=== PATIENT | male | born 1975 | race Caucasian/White ===

== ENCOUNTER 2018-01-12 14:30 | Outpatient (RCR) | payer OTHER, SELFPAY ==
--- NOTE | 2017-12-22 08:30 | PTTR_ITS ---
DATE: 12/22/17 SUBJECTIVE: Pt reporting that he has had a rough week with the tingling in his hands. He had some pretty hard tingling through his thumb and first and second digit of the (L) arm and hand. He is not sure if he is responding well to the dry needling last time and he has had increased pain since then. He is frustrated with his progress. OBJECTIVE: Manual therapy: ([id number]). Performed deep tissue mobilization techniques to the upper trap, levator and thoracic paraspinals on the (L). I clear out trigger point sin the levator attachment. In supine performed trigger point release to the upper traps and deep tissue work through the scalenes, SCM and pec minor. Post tissue work pt notes improvement in his tingling and he is then seen by primary PT Dominic Senior please refer to his note for specifics. * X Ultrasound - (x 8 mins) - [id number]: Ultrasound applied to (L) levator attachment and medial border of the scapula at 1 megahertz, 1.1 ardon per cm squared 100% duty cycle x 8 minutes. Direct treatment time: 30 minutes Total treatment time: 30 minutes
--- NOTE | 2017-12-22 14:25 | PTTR_ITS ---
DATE: 12/22/17 SUBJECTIVE: Titi states that he has paraesthesias and they have returned. They seem to have happened after his last needling session, he was sore that evening and then they returned. They have been present through his vacation. He was a little discouraged. After seeing Anneliese Kim, ENGINE PILOT today through with trigger point release techniques etc.. his paraesthesias resolved. OBJECTIVE: Manual therapy: ([id number]).She is hypomobile in all directions with unloading her cervical spine with manual traction, segemental gliding AAROM and muscle energy techniques into side bending and rotation. I then work on reducing his cervical lordosis while side bending to the (L) he has increased tone and tenderness throughout the (L) mid trap region and I apply a Hooks strain counter strain techniques and it resolves. I then have him in the prone position for grade 4 PA glides of the thoracic spine and then the costovertebral articulations and I instruct him in diaphragmatic breathing the transverse process activation along with the lower trap. He is then able to perform this as an HEP. Direct treatment time: 30 minutes Total treatment time: 30 minutes ASSESSMENT: Symptoms return with the last knee length so we held at that. We will see how he responds today and then he will have a follow up early in the week.
--- NOTE | 2017-12-25 15:30 | PTTR_ITS ---
DATE: 12/25/17 SUBJECTIVE: Titi is in good spirits, he is encouraged. He has not had paresthesias since his last visit. This has been the longest time between visits OBJECTIVE: Seen by Lolis Kim PTA prior to my session where she cleared the soft tissues (see her note) Manual therapy: ([id number]). I mobilize the cervical spine starting with manual traction and stretching into sidebending and rotation with METs and trigger point release. I then straighten cervical lordosis, perform arm pull on the L, followed by framing of the L scapula, retroscapularly and then perform a grade 4 PA glide to the thoracic spine and costovertebral articulations. He is hypomobile on the R around the lower thoracic spine. He has increased tone throughout the paraspinals and I do some Dillon strain, counterstrain technique to this area. I also do skin rolls to the entire thoracolumbar region. Direct treatment time: 25 mins Total treatment time: 25 mins with a follow up appt later this week. DLW/dl
--- NOTE | 2017-12-25 16:15 | PTTR_ITS ---
DATE: 12/25/17 SUBJECTIVE: Pt reports symptoms much improved; no numbness / tingling since Monday. OBJECTIVE: * X Ultrasound - (x 8 mins) - [id number]: Pt in prone, US to superomedial angle of scapula, including insertion of both levator scap and superior portion of rhomboid. 1 MHz, 1.1 W/CM2, 8 minutes, 100% duty cycle. Manual therapy: (11247f9). Pt in prone, STM to left supraspinatus, infraspinatus, rhomboids, upper trap, levator scap. TPR to rhomboids, upper trap. Pt reports some return of symptoms during TPR in rhomboids, this resolves when pt turns supine. In supine, STM and TPR to L pec major. STM to L pec minor, no TP noted. STM to bilateral upper trap, levator scap, scalenes, cervical paraspinals. Subsequently seen by Dominic Senior PT. Please see his note for specifics. Direct treatment time: 30 minutes Total treatment time: 30 minutes
--- NOTE | 2017-12-29 16:00 | PTTR_ITS ---
DATE: 12/29/17 SUBJECTIVE: Titi states that his L hand paresthesias reoccurred, but mild extent and intermittent since i saw him last. He gets a few days of relief with the PT. We discussed options of trying to simulate what we do here in the clinic at home and he has a difficult time reaching the trigger point that seems to aggravate his paresthesias. Talked about using a cane, etc. . . and he is going to try and locate one and see if this gives him a better access. Manual therapy: ([id number]). Mild paresthesias in his L hand today. He was seen by Heidi Osorio PTA for US and soft tissue mobilization prior to my session and his symptoms resolved. I mobilize his cervical spine, but with rotation to the L it is close to full, but it does reproduce some of his symptoms. After I mobilize his cervical spine, I perform arm pulls. In prone position some PA glides to the thoracic spine, again the paresthesias occur. I tilt the table so it flexes his neck further and this feels more comfortable. I then explore the L rhomboid, infraspinatus fossa and levator scapula and they are hypertonic and sensitive and I clear these with a Dillon strain, counterstrain technique. Direct treatment time: 25 mins Total treatment time: 25 mins A: Off and on paresthesias. They resolved following his session today. He is a little sensitive in the L scapula area from the aggressive work we did today. Will see what kind of impact it has on his symptoms. Talked about cutting back on his treatment, but he is hoping for 2 appts next week because of the effectiveness of treatment. P: Have Titi try to simulate trigger point release we do here in clinic, in hopes that he can manage his symptoms at home, etc. . . Has a follow up early next week. TUCKERW/tucker
--- NOTE | 2017-12-29 16:25 | PTTR_ITS ---
DATE: 12/29/17 OBJECTIVE: Manual therapy: ([id number]). Following US, perform STM and TPR techniques to L rhomboid, upper trap, supraspinatus, and infraspinatus, with noted trigger point and tension in rhomboid. With patient in supine, perform STM to L pec major, followed by STM t/o scalenes, upper trap, cervical paraspinals, and levator scap. Patient did not c/o radiating symptoms into L hand today. He is then seen by primary therapist, Dominic Senior PT. * [X] Ultrasound - (x [8] mins) - 65720l[1]: With patient in prone, apply 1MHz at 1.1 w/cm2, 100% duty cycle x8 minutes over superomedial angle of scapula and rhomboid on L. Direct treatment time: 30 minutes Total treatment time: 30 minutes
--- NOTE | 2018-01-01 15:43 | PTTR_ITS ---
DATE: 01/01/18 SUBJECTIVE: Titi reporting that he has had pretty significant tingling into his (L) hand and fingers over the past week or so. He does not understand a trigger to this tingling. He has had a pretty steady week at work without any extreme lifting. He is unsure if the mobilization techniques to his back are triggering the tingling because he feels that after the soft tissue work her has less tingling. OBJECTIVE: Manual therapy: ([id number]). Deep tissue mobilization techniques provided through the (L) upper trap, rhomboids, levator and thoracic and cervical paraspinals. Clear trigger points to the attachment site of the upper trap to the superior angle of the scapula. In supine performed deep tissue mobilization techniques through the pec major and minor clearing out trigger points in the pec minor. Also notes significant tone through the scalenes and SCM on the (L), I clear this out. He ends with OA release. He is then followed up by primary therapist Dominic Senior please see his note for specifics. * X Ultrasound - (x 8 mins) - [id number]: Perform ultrasound to the (L) upper trap and medial border of the scapula at 1 megahertz, 100% duty cycle 1.1 ardon per cm squared x 8 minutes. Direct treatment time: 30 minutes Total treatment time: 30 minutes
--- NOTE | 2018-01-05 16:01 | PTTR_ITS ---
DATE: 01/05/18 SUBJECTIVE: Titi stating his numbness and tingling is pretty bad today into his left hand. He felt like his whole arm was sort of throbbing most of the day today. He is extremely frustrated about this. He does get temporary relief after PT although this is not lasting long. He will be contacting Occupational Medicine on Monday for a follow up. OBJECTIVE: Manual therapy: ([id number]). Ultrasound applied first today. See below for details. DTM techniques applied through left upper trap, levator and rhomboids. Pt has significant tone noted and trigger points and attempt to clear but without success in the upper trap. With trigger point release I do note spasming through the posterior left shoulder. In supine perform STM through the pec major and minor and clear trigger point in the pec minor. STM applied through cervical paraspinals, scalenes and SCM on the left. Post treatment pt notes 95% reduction in numbness in the left hand. * X Ultrasound - (x 8 mins) - [id number]: Applied to the left levator, upper trap and rhomboid musculature at 1.1 ardon/cm2, 8 minutes, 100% duty cycle, 1 mHz. Direct treatment time: 30 minutes Total treatment time: 30 minutes Anneliese Kim PTA
--- NOTE | 2018-01-09 15:30 | PTTR_ITS ---
DATE: 01/09/18 SUBJECTIVE: Titi noting 1 day relief of his tingling and numbness through the left UE. Today he again has about a moderate level of tingling and discomfort. He is hopeful that after today's session he will get several days of relief. He does have a follow up appt. next week with occupational medicine. OBJECTIVE: Manual therapy: ([id number]). Pt. receives deep tissue mobilization techniques to the attachment of the levator and upper trap near the superior angle of the scapula. Also performed deep tissue work to the rhomboids and thoracic paraspinals. In supine, clear pec minor, scalenes and SCMs on the left. Also performed some deep tissue mobilization techniques to the cervical paraspinals and performed suboccipital release and unloading techniques tot he cervical spine. Pt. notes no tingling and numbness upon leaving the clinic today. Will follow up with him later this week. * x Ultrasound - (x 8 mins) - [id number]: Pt. receives U/S to the upper trap, levator, and rhomboid musculature on the left at 1mHz, 1.1w/cm2, 100% duty cycle. Direct treatment time: 30 min. Total treatment time: 30 min. LB/kf
--- NOTE | 2018-01-12 15:19 | PTTR_ITS ---
DATE: 01/12/18 SUBJECTIVE: Titi feels that his pain has improved approx. 90% and his paresthesias to 25% compared to a few months ago. His primary complaint is of intermittent paresthesias and numbness throughout the median nerve distribution of his L hand (90% of the day). Sometimes it is associated with lateral, L humeral and forearm discomfort. Stress affects his symptoms (he is currently going through a divorce). He gets short term temporary relief with PT, which focuses on myofascial trigger points throughout the L scapulothoracic area. OBJECTIVE: His cervical spine movements are close to full and pain free with movement. Negative foraminal compression or change with manual traction. He does have hypertenicity, though, throughout the L middle trap and rhomboids, which refers pain into his L forearm. Shoulder,elbow, wrist and digit movements are full and painless with movement. Negative Adson or thrust test. He does get some paresthesias into the median nerve distribution of his L hand with a hyperabduction test. He has tenderness to palpation through the extensor surface of his L forearm compared to the R. Negative pain with resistance to the wrist extensors or with gripping. His vp scientific affairs strength on a dynamometer setting of 3 is 125 lbs on the R and 115 on the L. His lateral pinch is 22 lbs bilaterally. Neuro: Reflexes are symmetrical. He has full motor control rated 5/5. Sensation is intact to 2 point discrimination throughout the entire hand. He has a positive Tinel sign at the carpal tunnel bilaterally and a positive Phalen test on the L. Negative reverse Phalen test. Negative Tinel sign at the cubital tunnel or Guyon canal. Assessment: Persistent paresthesia/numbness through the median nerve distribution of his L hand and discomfort throughout the extensor surface of his forearm or the lateral aspect of the proximal humerus. I question whether this may be myofascial in nature vs. carpal tunnel syndrome. When we do treat these trigger points, he gets sometimes up to 2-3 days of relief, not so much recently. This problem has been ongoing since June and he is better overall, but his symptoms have pretty much leveled off and limited to the paresthesias, etc. I question whether a nerve conduction test would be helpful, if this is clear then possibly a visit with the Pain Clinic for evaluation for trigger point injections, etc... Plan: Contacted [facility]. He has a meeting next Monday and will discuss his situation with them about these recommendations. Will hold off on PT for the next month, unless he exacerbates, then he will contact me. Direct treatment time: 30 min Total treatment time: 30 min DLW/fw
--- NOTE | 2018-01-12 15:29 | PTTR_ITS ---
DATE: 01/12/18 OBJECTIVE: Co-treatment with Dominic Senior PT. Please see his note for specifics. Manual therapy: ([id number]). Pt receives DTM techniques to the levator and upper trap, rhomboids on the left. Trigger point release applied to the levator which re-creates numbness and tingling into his hands but is short lasting. In supine applied DTM techniques to the pec minor, SCM, scalenes and cervical paraspinals. * X Ultrasound - (x 8 mins) - [id number]: Applied to the levator and upper trap insertion to the scapula at 1 mHz, 1.1 ardon/cm2, 100% duty cycle x 8 minutes. Direct treatment time: 30 minutes Total treatment time: 30 minutes Anneliese Kim, CUSTOMER EXPERIENCE MANAGER
== END 2018-01-12 23:59 | disposition home or self-care (01) ==
LOC: PT 14:30
PROVIDERS: PCP Family Medicine; Referring Provider Nurse Practitioner Family; Visit Provider Nurse Practitioner Family
DX: M75.42 Impingement syndrome of left shoulder (principal)
CPT/HCPCS: 97035; 97140

== ENCOUNTER 2019-08-09 15:59 | Outpatient (REF) | payer BC, SELFPAY ==
[2019-08-11 18:20] LABS: SARS-CoV-2 RNA Undetected (Undetected); SARS-CoV-2 Specimen Source Nasopharynx
== END 2019-08-09 16:19 ==
LOC: NCHCN 15:59
PROVIDERS: PCP Family Medicine; Visit Provider Nurse Practitioner Family
DX: Z20.828 Contact with and (suspected) exposure to other viral communicable diseases (principal); R50.9 Fever, unspecified; R06.02 Shortness of breath
CPT/HCPCS: U0003

== ENCOUNTER 2024-03-09 15:04 | Outpatient (REF) | payer BC, SELFPAY ==
--- OUTSIDE RECORDS SUMMARY | 2024-03-09 15:07 | XMS_ITS ---
Author Organization Unknown Address [address] [place] [phone] Phone Care Team Providers Care Clerical Investigator Name Role Phone DEB CARTWRIGHT Registered Nurse Unavailable DI Villalobos Attending Unavailable UNLISTED PROVIDER - REQUESTED Xhandoff Un available Social History Type Status Start Date End Date Code Code Syst em Smoking History Never smoker (Never Smoked) 122083101 SNOMED CT Sex Male Sexual Orientation Straight or Heterosexual 63932079 SNOMED CT Gender Identity Male [id number] Vital Signs Vital Sign Value Unit [place] Value [place] [facility] Date/Time Recent/Initial? Code Code System Body Mass Index 26.25 kg/m2 05/19/2022 16:35 Initial 45619 -5 LOINC Systolic Blood Pressure 138 mm[Hg] 05/19/2022 16:35 Initial 8480- 6 LOINC Diastolic Blood Pressure 92 mm[Hg] 05/19/2022 16:35 Initial 8462- 4 LOINC Body Surface Area 2.25 m2 05/19/2022 16:35 Initial 3140- 1 LOINC Height 190.500 0 cm 75.00 in 05/19/2022 16:35 Initial 8302- 2 LOINC O2 Saturation 100 % 2022 16:35 Initial 99576 -5 LOINC Pulse 73.0 /min 05/19/2022 16:35 Initial 8867- 4 LOINC Respiration 16 /min 05/19/19 16:35 Initial 9279- 1 LOINC Temperature 36.4 Shawna 97.5 F 05/19/19 16:35 Initial 8310- 5 LOINC Weight 95.25 kg 210.00 lbs 05/19/2022 16:35 Initial 68797 -7 LOINC Medications Medication Start Date End Date Route Frequency Dose Code Code System Medication Instructions Home Meds Erythromycin 5MG/1GM Ophthalmic Ointment 05/19/2022 Unknown RIGHT EYE FOUR TIMES A DAY [id number] RxNorm PLACE 1/4 INCH RIGHT EYE FOUR TIMES A DAY until pain free for 24 hours Assessment You had the following problems:LEFT BACTERIAL CONJUNCTIVITIS Hospital Discharge Instructions Should you have any questions prior to discharge, please contact a member of your healthcare team. If you have left the hospital and have any questions, please contact your primary care physician. Reason For Referral No Data Found Problems Problem Start Date Resolved Date Status Code Code System LEFT BACTERIAL CONJUNCTIVITIS active [id number] SNOMED-C T Allergies and Adverse Reactions Allergy Substance Reaction Severity Start Date Concern Status Co de Code System No Known Allergies Moderate Active Plan of Treatment OUTPATIENT PLAN: Discharge Medications Medication Dosage Route Frequency Prescribing MD Special Instructions Erythromycin 5MG/1GM Ophthalmic Ointment LEFT EYE FOUR TIMES A DAY DI CHA J PLACE 1/4 INCH LEFT EYE FOUR TIMES A DAY until pain free for 24 hours Follow up: Please see your doctor Or return to the ER for severe worsening vision, severe increasing pain, severe swelling, or any new or worsening concerns. Other Instructions: warm compresses as discussed. Avoid using anything on the left eye that can subsequently touch the right eyes such as hand towels, pillowcases, etc. Encounters Encounter Diagnosis Start Date Code Code Sys tem Conjunctivitis 05/19/2022 4070508 SNOMED-CT Personal Care Team Section Performer Name Performer Role Active Date Inactive Jonathon clemons
[2024-03-11 09:47] LABS: Lyme Ab w Rflx to Lyme Confirm Negative (Negative)
== END 2024-03-09 15:05 | disposition home or self-care (01) ==
LOC: LBN 15:04
PROVIDERS: PCP Student in an Organized Health Care Education/Training Program; Visit Provider Physician Assistant Medical
DX: M25.59 Pain in other specified joint (principal)
CPT/HCPCS: 86618

== ENCOUNTER 2025-01-02 08:42 | Outpatient (REF) | payer BC, SELFPAY ==
[2025-01-02 17:19] LABS: HCT 39.8 % (40.0-50.0); HGB 13.6 g/dL (13.5-17.5); MCH 31.3 pg (27.0-33.0); MCHC 34.2 % (32.0-36.0); MCV 92 fL (80-95); MPV 10.3 fL (8.0-11.0); Platelet Count 303 10^3/uL (130-400); RBC 4.35 10^6/uL (4.36-5.78); RDW 11.8 % (11.8-14.1); RDW-SD 39.4 fL; WBC 3.64 10^3/uL (4.4-10.8)
[2025-01-02 17:43] LABS: ALT 37 U/L (16-63); AST 26 U/L (15-37); Albumin 4.1 g/dL (3.4-5.0); Alkaline Phosphatase 67 U/L (46-116); Anion Gap 10.3 mmol/L (3-11); BUN 15 mg/dL (7-18); Bilirubin, Total 0.6 mg/dL (0.2-1.0); CO2 26.7 mmol/L (21.0-32.0); Calcium 9.3 mg/dL (8.5-10.1); Calculated LDL 136 mg/dL (<100); Chloride 102 mmol/L (98-107); Cholesterol 192 mg/dL (<200); Estimated GFR 66.93 (mL/min/1.73m2); Glucose 85 mg/dL (74-106); HDL Cholesterol 50 mg/dL (>or=40); Potassium 4.2 mmol/L (3.5-5.1); Sodium 139 mmol/L (136-145); TSH 2.20 uIU/mL (0.36-3.74); Total Protein 7.5 g/dL (6.4-8.2); Triglyceride 31 mg/dL (<150)
[2025-01-03 18:16] LABS: T3, Total 128 ng/dL (97-169)
== END 2025-01-02 08:43 | disposition home or self-care (01) ==
LOC: NCHCN 08:42
PROVIDERS: PCP Student in an Organized Health Care Education/Training Program; Visit Provider Physician Assistant
DX: R63.5 Abnormal weight gain (principal); Z13.220 Encounter for screening for lipoid disorders; M25.59 Pain in other specified joint
CPT/HCPCS: 80053; 80061; 85027; 84439; 84443; 84480